=== PATIENT | male | born 1930 | race Caucasian/White ===

== ENCOUNTER 2016-03-27 12:45 | Outpatient (CLI) | payer MEDICARE, BC | END 2016-03-27 23:59 | disposition home or self-care (01) | LOC: WOU 12:45 | PROVIDERS: ATTEND Surgery | DX: L59.8 Other specified disorders of the skin and subcutaneous tissue related to radiation (principal); Z85.820 Personal history of malignant melanoma of skin; N40.0 Benign prostatic hyperplasia without lower urinary tract symptoms; M87.38 Other secondary osteonecrosis, other site | CPT/HCPCS: 11044; A6402 ==

== ENCOUNTER 2016-04-10 10:43 | Outpatient (CLI) | payer MEDICARE, BC | END 2016-04-10 23:59 | disposition home or self-care (01) | LOC: WOU 10:43 | PROVIDERS: ATTEND Surgery | DX: L59.8 Other specified disorders of the skin and subcutaneous tissue related to radiation (principal); M87.38 Other secondary osteonecrosis, other site; Z85.820 Personal history of malignant melanoma of skin; I10 Essential (primary) hypertension | CPT/HCPCS: 11044; A6402 ==

== ENCOUNTER 2016-04-17 12:20 | Outpatient (CLI) | payer MEDICARE, BC | END 2016-04-17 23:59 | disposition home or self-care (01) | LOC: WOU 12:20 | PROVIDERS: ATTEND Surgery | DX: L59.8 Other specified disorders of the skin and subcutaneous tissue related to radiation (principal); L98.494 Non-pressure chronic ulcer of skin of other sites with necrosis of bone; M87.38 Other secondary osteonecrosis, other site; Z85.820 Personal history of malignant melanoma of skin | CPT/HCPCS: 11044; A6402 ==

== ENCOUNTER 2016-04-24 12:50 | Outpatient (CLI) | payer MEDICARE, BC | END 2016-04-24 23:59 | disposition home or self-care (01) | LOC: WOU 12:50 | PROVIDERS: ATTEND Surgery | DX: L59.8 Other specified disorders of the skin and subcutaneous tissue related to radiation (principal); L98.494 Non-pressure chronic ulcer of skin of other sites with necrosis of bone; I10 Essential (primary) hypertension; Z85.820 Personal history of malignant melanoma of skin | CPT/HCPCS: 11044; A6402 ==

== ENCOUNTER 2016-05-01 12:50 | Outpatient (CLI) | payer MEDICARE, BC | END 2016-05-01 23:59 | disposition home or self-care (01) | LOC: WOU 12:50 | PROVIDERS: ATTEND Surgery | DX: L59.8 Other specified disorders of the skin and subcutaneous tissue related to radiation (principal); I10 Essential (primary) hypertension; Z85.820 Personal history of malignant melanoma of skin; L98.494 Non-pressure chronic ulcer of skin of other sites with necrosis of bone; I96 Gangrene, not elsewhere classified | CPT/HCPCS: 11043; A6402 ==

== ENCOUNTER 2016-05-08 12:40 | Outpatient (CLI) | payer MEDICARE, BC | END 2016-05-08 23:59 | disposition home or self-care (01) | LOC: WOU 12:40 | PROVIDERS: ATTEND Surgery | DX: L59.8 Other specified disorders of the skin and subcutaneous tissue related to radiation (principal); L98.494 Non-pressure chronic ulcer of skin of other sites with necrosis of bone; Z85.820 Personal history of malignant melanoma of skin; I10 Essential (primary) hypertension | CPT/HCPCS: 11044; A6402 ==

== ENCOUNTER 2016-05-15 12:55 | Outpatient (CLI) | payer MEDICARE, BC | END 2016-05-15 23:59 | disposition home or self-care (01) | DX: L59.8 Other specified disorders of the skin and subcutaneous tissue related to radiation (principal); M87.38 Other secondary osteonecrosis, other site; Z85.820 Personal history of malignant melanoma of skin; I10 Essential (primary) hypertension | CPT/HCPCS: 11044; A6402 ==

== ENCOUNTER 2016-05-22 13:29 | Outpatient (CLI) | payer MEDICARE, BC | END 2016-05-22 23:59 | disposition home or self-care (01) | LOC: WOU 13:29 | PROVIDERS: ATTEND Surgery | DX: L59.8 Other specified disorders of the skin and subcutaneous tissue related to radiation (principal); L98.494 Non-pressure chronic ulcer of skin of other sites with necrosis of bone; Z85.820 Personal history of malignant melanoma of skin | CPT/HCPCS: 11044; A6402 ==

== ENCOUNTER 2016-05-29 12:40 | Outpatient (CLI) | payer MEDICARE, BC | END 2016-05-29 23:59 | disposition home or self-care (01) | LOC: WOU 12:40 | PROVIDERS: ATTEND Surgery | DX: L59.8 Other specified disorders of the skin and subcutaneous tissue related to radiation (principal); L98.494 Non-pressure chronic ulcer of skin of other sites with necrosis of bone; Z85.820 Personal history of malignant melanoma of skin; I10 Essential (primary) hypertension | CPT/HCPCS: 11044; A6402 ==

== ENCOUNTER 2016-06-05 12:30 | Outpatient (CLI) | payer MEDICARE, BC | END 2016-06-05 23:59 | disposition home or self-care (01) | LOC: WOU 12:30 | PROVIDERS: ATTEND Surgery | DX: L59.8 Other specified disorders of the skin and subcutaneous tissue related to radiation (principal); L98.494 Non-pressure chronic ulcer of skin of other sites with necrosis of bone; Z85.820 Personal history of malignant melanoma of skin; I10 Essential (primary) hypertension | CPT/HCPCS: 11044; A6402 ==

== ENCOUNTER 2016-06-26 13:28 | Outpatient (CLI) | payer MEDICARE, BC | END 2016-06-26 23:59 | disposition home or self-care (01) | LOC: WOU 13:28 | PROVIDERS: ATTEND Surgery | DX: L59.8 Other specified disorders of the skin and subcutaneous tissue related to radiation (principal); L98.494 Non-pressure chronic ulcer of skin of other sites with necrosis of bone; Z85.820 Personal history of malignant melanoma of skin; I10 Essential (primary) hypertension; Z79.82 Long term (current) use of aspirin | CPT/HCPCS: 11044; A6402 ==

== ENCOUNTER 2016-07-10 12:56 | Outpatient (CLI) | payer MEDICARE, BC | END 2016-07-10 23:59 | disposition home or self-care (01) | LOC: WOU 12:56 | PROVIDERS: ATTEND Surgery | DX: L59.8 Other specified disorders of the skin and subcutaneous tissue related to radiation (principal); L98.494 Non-pressure chronic ulcer of skin of other sites with necrosis of bone; Z85.820 Personal history of malignant melanoma of skin; I10 Essential (primary) hypertension; Z79.82 Long term (current) use of aspirin | CPT/HCPCS: 11043; A6402 ==

== ENCOUNTER 2016-07-24 12:56 | Outpatient (CLI) | payer MEDICARE, BC | END 2016-07-24 23:59 | disposition home or self-care (01) | LOC: WOU 12:56 | PROVIDERS: ATTEND Surgery | DX: L59.8 Other specified disorders of the skin and subcutaneous tissue related to radiation (principal); L98.494 Non-pressure chronic ulcer of skin of other sites with necrosis of bone; Z85.820 Personal history of malignant melanoma of skin; I10 Essential (primary) hypertension; Z79.82 Long term (current) use of aspirin | CPT/HCPCS: 11044; A6402 ==

== ENCOUNTER 2016-08-07 12:41 | Outpatient (CLI) | payer MEDICARE, BC | END 2016-08-07 23:59 | disposition home or self-care (01) | LOC: WOU 12:41 | PROVIDERS: ATTEND Surgery | DX: L59.8 Other specified disorders of the skin and subcutaneous tissue related to radiation (principal); M96.89 Other intraoperative and postprocedural complications and disorders of the musculoskeletal system; M87.38 Other secondary osteonecrosis, other site; Y84.2 Radiological procedure and radiotherapy as the cause of abnormal reaction of the patient, or of later complication, without mention of misadventure at the time of the procedure; Y78.1 Therapeutic (nonsurgical) and rehabilitative radiological devices associated with adverse incidents; Z85.820 Personal history of malignant melanoma of skin; I10 Essential (primary) hypertension | CPT/HCPCS: 11043; A6402 ==

== ENCOUNTER 2016-08-28 12:50 | Outpatient (CLI) | payer MEDICARE, BC | END 2016-08-28 23:59 | disposition home or self-care (01) | LOC: WOU 12:50 | PROVIDERS: ATTEND Surgery | DX: L59.8 Other specified disorders of the skin and subcutaneous tissue related to radiation (principal); L98.491 Non-pressure chronic ulcer of skin of other sites limited to breakdown of skin; Z85.820 Personal history of malignant melanoma of skin; I10 Essential (primary) hypertension | CPT/HCPCS: 11042; A6402 ==

== ENCOUNTER 2016-09-25 12:45 | Outpatient (CLI) | payer MEDICARE, BC | END 2016-09-25 23:59 | disposition home or self-care (01) | LOC: WOU 12:45 | PROVIDERS: ATTEND Surgery | DX: L59.8 Other specified disorders of the skin and subcutaneous tissue related to radiation (principal); Z85.820 Personal history of malignant melanoma of skin; I10 Essential (primary) hypertension; I96 Gangrene, not elsewhere classified | CPT/HCPCS: 11042; A6402 ==